=== PATIENT | female | born 2005 | race Caucasian/White ===

== ENCOUNTER 2024-07-05 12:14 | Emergency (ER) | payer SELFPAY ==
[~2024-07-05] VITALS: Ht 167.6 cm; Wt 90.9 kg
[2024-07-05 12:21] VITALS: BP 155/99; TEMP 98.4
[2024-07-05] MEDS ORDERED: CEPHALEXIN500 M1 PO (12:52)
[2024-07-05 13:13] VITALS: PULSE 88
== END 2024-07-05 13:13 | disposition home or self-care (01) ==
LOC: COL.ER 12:14
DX: L01.00 Impetigo, unspecified (principal)